=== PATIENT | female | born 1990 | race Asian ===

== ENCOUNTER 2016-12-27 14:28 | Emergency (ER) | payer MEDICAID, OTHER ==
[~2016-12-27] VITALS: Ht 149.9 cm; Wt 68.2 kg
[~2016-12-27 14:28] MED LIST: ARIP20TA8 PO; BUPR150T8 PO; DIVA250T25 PO; FLUO-191 PO
[2016-12-27] MEDS ORDERED: LORA0.5T2 PO (14:57)
[2016-12-27] MEDS ORDERED: [UNRECOGNIZED DRUG - CODE] PO (14:57)
[2016-12-27] MEDS ORDERED: GUAN1TAB22 PO (14:57)
[2016-12-27] MEDS ORDERED: ACET325T47 PO (14:57)
[2016-12-27] MEDS ORDERED: DIVA125T PO (14:57)
[2016-12-27 15:47] LABS: BASOPHILS % (AUTO) 0.6 % (0.0-2.0); EOSINOPHILS % (AUTO) 0.2 % (1.0-6.0); HEMATOCRIT 45.4 % (36-46); HEMOGLOBIN 15.1 g/dL (12.0-16.0); LYMPHOCYTES # (AUTO) 3.1 K/uL (1.0-4.8); LYMPHOCYTES % (AUTO) 35.9 % (22.0-44.0); MEAN CORPUSCULAR HEMOGLOBIN 31.9 pg (26.0-34.0); MEAN CORPUSCULAR HGB CONC 33.3 G/dL (31.0-37.0); MEAN CORPUSCULAR VOLUME 96 fL (80-100); MONOCYTES # (AUTO) 0.8 K/uL (0.1-1.0); MONOCYTES % (AUTO) 9.6 % (2.0-9.0); NEUTROPHILS # (AUTO) 4.6 K/uL (1.8-7.7); NEUTROPHILS % (AUTO) 53.7 % (40.0-70.0); PLATELET COUNT (AUTO) 240 K/uL (150-450); RED BLOOD CELL COUNT(AUTO) 4.74 MIL/uL (4.00-5.20); RED CELL DISTRIBUTION WIDTH 14.2 % (11.5-14.5); WHITE BLOOD COUNT (AUTO) 8.6 K/uL (4.5-11.0)
[2016-12-27 15:58] LABS: ANION GAP 12 mmol/L (8-16); CALCIUM, TOTAL 9.2 mg/dL (8.8-10.5); CARBON DIOXIDE 26 mmol/L (22-29); CHLORIDE 104 mmol/L (98-107); CREATININE 0.84 mg/dL (0.60-1.30); GLOMERULAR FILTR. RATE CALC > 60 mL/min (>60); POTASSIUM 3.5 mmol/L (3.5-5.1); SODIUM SERUM 142 mmol/L (136-145); UREA NITROGEN, BLOOD 13 mg/dL (7-18)
[2016-12-27 16:08] LABS: ALANINE AMINOTRANSFERASE 40 U/L (12-78); ALBUMIN 3.5 g/dL (3.4-5.0); ASPARTATE AMINOTRANSFERASE 38 U/L (15-37); BILIRUBIN,TOTAL 0.2 mg/dL (0.1-1.0); TOTAL PROTEIN, SERUM 8.4 g/dL (6.4-8.2)
[2016-12-27 16:27] LABS: VALPROIC ACID 88 mcg/mL (50-100)
[2016-12-27 16:29] VITALS: BP 127/82
[2016-12-27] MEDS ORDERED: ARIP15TA3 PO (17:12)
[2016-12-27] MEDS ORDERED: LORazepam 2 MG TABLET PO ONE (17:15)
[2016-12-27] MEDS ORDERED: HALOPERIDOL 5 MG TABLET PO ONE (17:15)
[2016-12-27] MEDS ORDERED: LORazepam 1 MG TABLET PO ONE (17:45)
== END 2016-12-27 18:16 | disposition home or self-care (01) ==
LOC: EMS 14:40
DX: F29 Unspecified psychosis not due to a substance or known physiological condition (principal)
CPT/HCPCS: 36415; 80053; 80164; 80307; 85025; 99284; G0480

== ENCOUNTER 2019-05-03 12:11 | Inpatient (IN) | payer OTHER ==
[~2019-05-03] VITALS: Ht 149.9 cm; Wt 84.7 kg
[~2019-05-03 12:11] MED LIST changes: +ACET325T47 PO; +ARIP15TA2 PO; -ARIP20TA8 PO; -BUPR150T8 PO; +DIVA-76 PO; -DIVA250T25 PO; +GUAN1TAB22 PO; +LORA0.5T2 PO; +[UNRECOGNIZED DRUG - CODE] PO
[2019-05-03] MEDS ORDERED: SODIUM CHLORIDE 0.9% 2,300 ML IV ONE (12:33)
[2019-05-03] MEDS ORDERED: 0.9% SODIUM CHLORIDE 10 ML SYRINGE IVP PRN ×2 (12:45→17:45)
[2019-05-03 13:08] LABS: APPEARANCE,URINE CLOUDY (CLEAR); BILIRUBIN,URINE NEGATIVE (NEGATIVE); GLUCOSE, URINE (UA) NEGATIVE (NEGATIVE); KETONES,URINE 15 mg/dL (NEGATIVE); LEUKOCYTE ESTERASE ,URINE LARGE (NEGATIVE); NITRATE,URINE NEGATIVE (NEGATIVE); OCCULT BLOOD,URINE MODERATE (NEGATIVE); PH,URINE 5.5 (5.0-8.0); PROTEIN,URINE POS 1+ (NEGATIVE)
[2019-05-03 13:13] LABS: WBC,URINE 51-100 /HPF (0-5)
[2019-05-03 13:14] LABS: BACTERIA,URINE Moderate /HPF (None Seen); RENAL EPITHELIAL CELLS,URINE Few /LPF (None Seen); SQUAMOUS EPITHELIAL CELL,UR Moderate /LPF (None Seen)
[2019-05-03 13:16] LABS: HEMATOCRIT 40.5 % (36-46); HEMOGLOBIN 13.5 g/dL (12.0-16.0); MEAN CORPUSCULAR HEMOGLOBIN 31.8 pg (26.0-34.0); MEAN CORPUSCULAR HGB CONC 33.3 G/dL (31.0-37.0); MEAN CORPUSCULAR VOLUME 96 fL (80-100); PLATELET COUNT (AUTO) 145 K/uL (150-450); RED BLOOD CELL COUNT(AUTO) 4.24 MIL/uL (4.00-5.20); RED CELL DISTRIBUTION WIDTH 13.2 % (11.5-14.5)
[2019-05-03] MEDS ORDERED: CefTRIAXone 1 GM/DEXTROSE 50 ML IV ONE (13:30)
[2019-05-03 13:39] LABS: PROTHROMBIN TIME 10.5 SEC (9.4-11.6)
[2019-05-03 13:41] LABS: ANION GAP 15 mmol/L (8-16); CALCIUM, TOTAL 9.2 mg/dL (8.8-10.5); CARBON DIOXIDE 20 mmol/L (22-29); CHLORIDE 101 mmol/L (98-107); CREATININE 0.99 mg/dL (0.60-1.30); GLOMERULAR FILTR. RATE CALC > 60 mL/min (>60); GLUCOSE,RANDOM 128 mg/dL (70-110); POTASSIUM 3.6 mmol/L (3.5-5.1); SODIUM SERUM 136 mmol/L (136-145); UREA NITROGEN, BLOOD 6 mg/dL (7-18)
[2019-05-03] MEDS ORDERED: SODIUM CHLORIDE 0.9% 100 ML ONE (13:45)
[2019-05-03] MEDS ORDERED: IOVERSOL 350 MG/ML 100 ML VIAL ONE (13:45)
[2019-05-03 13:46] LABS: ALANINE AMINOTRANSFERASE 39 U/L (12-78); ALBUMIN 3.1 g/dL (3.4-5.0); ALKALINE PHOSPHATASE 88 U/L (46-116); ASPARTATE AMINOTRANSFERASE 32 U/L (15-37); BILIRUBIN,TOTAL 0.5 mg/dL (0.1-1.0); TOTAL PROTEIN, SERUM 7.2 g/dL (6.4-8.2)
[2019-05-03 14:05] LABS: HCG,QUANTITATIVE < 1 mIU/mL (0-6); LACTIC ACID 2.8 mmol/L (0.4-2.0)
[2019-05-03 14:06] LABS: BAND NEUTROPHILS % (MANUAL) 17 % (0-5); LYMPHOCYTES % (MANUAL) 14 % (22-44); MONOCYTES % (MANUAL) 8 % (2-9); SEGMENTED NEUTROPHILS % 61 % (40-70)
[2019-05-03 14:58] LABS: INFLUENZA TYPE A NEGATIVE FOR TYPE A (NEGATIVE); INFLUENZA TYPE B NEGATIVE FOR TYPE B (NEGATIVE)
[2019-05-03] MEDS ORDERED: ACETAMINOPHEN 1000 MG/ISO-OSM 100 ML IV ONE (15:15)
[2019-05-03] MEDS ORDERED: LORazepam 2 MG/ML VIAL ONE (15:20)
[2019-05-03 15:30] LABS: ABG A-A DIFF O2 371.3 mmHg (10-20.0); ABG BASE EXCESS -10.8 mmol/L (-2.0-3.0); ABG CARBOXYHEMOGLOBIN 0.5 % (0.0-1.5); ABG HCO3 17.3 mmol/L (22.0-26.0); ABG METHEMOGLOBIN 0.3 % (0.0-1.5); ABG OXYGEN SATURATION 99.5 % (95.0-98.0); ABG OXYHEMOGLOBIN 98.7 % (94.0-100.0); ABG PCO2 29 mmHg (35-45); ABG PH 7.326 (7.350-7.450); ABG TOTAL HEMOGLOBIN 13.9 G/dL (12.0-18.0); SOURCE, BLOOD GAS ARTERIAL
[2019-05-03] MEDS ORDERED: LevETIRAcetam 1,000 MG in DEXTROSE 5%-WATER 100 ML IV ONE (15:30)
[2019-05-03] MEDS ORDERED: LORazepam 2 MG/ML VIAL IVP ONE ×2 (15:30→15:35)
[2019-05-03 15:31] LABS: O2 DEVICE,BLOOD GAS NON REBREATHER (ROOM AIR); SITE, BLOOD GAS RT RADIAL
[2019-05-03 15:44] LABS: GLUCOSE,POINT OF CARE 107 MG/DL (70-110)
[2019-05-03] MEDS ORDERED: SODIUM CHLORIDE 0.9% 1,000 ML IV ONE ×2 (15:45→19:15)
[2019-05-03] MEDS ORDERED: ACETAMINOPHEN 325 MG TABLET PO PRN ×2 (17:45→18:15)
[2019-05-03] MEDS ORDERED: ONDANSETRON HCL 4 MG/2 ML VIAL IVP PRN ×2 (17:45→18:15)
[2019-05-03] MEDS ORDERED: VANCOMYCIN HCL 1 GM/D5% WATER 200 ML IV ONE (17:45)
[2019-05-03] MEDS ORDERED: MAGNESIUM HYDROXIDE SUSPENSION 30 ML UDCUP PO PRN (18:15)
[2019-05-03] MEDS: SODIUM CHLORIDE 0.9% 1,000 ML IV SCH (18:26)
[2019-05-03] MEDS ORDERED: VANCOMYCIN HCL 750 MG in DEXTROSE 5%-WATER 250 ML IV ONE (19:15)
[2019-05-03] MEDS: DOCUSATE SODIUM 100 MG CAPSULE PO SCH (21:00)
[2019-05-03 21:19] VITALS: BP 117/97
[2019-05-03] MEDS ORDERED: LEVALBUTEROL HCL 1.25 MG/0.5 ML NEB SOLUTION NEB PRN (21:45)
[2019-05-04] VITALS (10 sets, daily range): BP systolic 12–133; BP diastolic 56–76
[2019-05-04] MEDS: MethylPREDNISolone SOD SUCC 40 MG/ML VIAL IVP SCH ×4 (00:36→23:04)
[2019-05-04] MEDS: SODIUM CHLORIDE 0.9% 1,000 ML IV SCH ×3 (02:49→20:19)
[2019-05-04 05:17] LABS: HEMATOCRIT 36.4 % (36-46); HEMOGLOBIN 12.1 g/dL (12.0-16.0); MEAN CORPUSCULAR HEMOGLOBIN 32.1 pg (26.0-34.0); MEAN CORPUSCULAR HGB CONC 33.3 G/dL (31.0-37.0); MEAN CORPUSCULAR VOLUME 96 fL (80-100); PLATELET COUNT (AUTO) 107 K/uL (150-450); RED BLOOD CELL COUNT(AUTO) 3.79 MIL/uL (4.00-5.20); RED CELL DISTRIBUTION WIDTH 13.6 % (11.5-14.5)
[2019-05-04 05:36] LABS: ANION GAP 12 mmol/L (8-16); CARBON DIOXIDE 18 mmol/L (22-29); CHLORIDE 111 mmol/L (98-107); GLOMERULAR FILTR. RATE CALC > 60 mL/min (>60); GLUCOSE,RANDOM 177 mg/dL (70-110); POTASSIUM 3.7 mmol/L (3.5-5.1); SODIUM SERUM 141 mmol/L (136-145); UREA NITROGEN, BLOOD 5 mg/dL (7-18)
[2019-05-04 06:29] LABS: BAND NEUTROPHILS % (MANUAL) 15 % (0-5); LYMPHOCYTES % (MANUAL) 6 % (22-44); MONOCYTES % (MANUAL) 3 % (2-9); SEGMENTED NEUTROPHILS % 76 % (40-70)
[2019-05-04] MEDS: FAMOTIDINE 20 MG TABLET PO SCH (08:48)
[2019-05-04] MEDS: VANCOMYCIN HCL 1.25 GM in DEXTROSE 5%-WATER 250 ML IV SCH ×2 (08:49→20:18)
[2019-05-04] MEDS: DOCUSATE SODIUM 100 MG CAPSULE PO SCH ×2 (08:50→20:19)
[2019-05-04] MEDS: CefTRIAXone 1 GM/DEXTROSE 50 ML IV SCH (14:26)
[2019-05-05 05:28] VITALS: BP 117/76
[2019-05-05] MEDS: SODIUM CHLORIDE 0.9% 1,000 ML IV SCH ×2 (05:44→21:13)
[2019-05-05 06:47] LABS: ANION GAP 9 mmol/L (8-16); CALCIUM, TOTAL 8.7 mg/dL (8.8-10.5); CARBON DIOXIDE 20 mmol/L (22-29); CHLORIDE 112 mmol/L (98-107); CREATININE 0.71 mg/dL (0.60-1.30); GLOMERULAR FILTR. RATE CALC > 60 mL/min (>60); GLUCOSE,RANDOM 143 mg/dL (70-110); POTASSIUM 3.7 mmol/L (3.5-5.1); SODIUM SERUM 141 mmol/L (136-145); UREA NITROGEN, BLOOD 8 mg/dL (7-18); VANCOMYCIN,RANDOM 8.5 mcg/mL (25.0-50.0)
[2019-05-05] MEDS ORDERED: VANCOMYCIN HCL 1.5 GM in DEXTROSE 5%-WATER 250 ML IV SCH (07:00)
[2019-05-05 08:02] VITALS: BP 123/72
[2019-05-05] MEDS: MethylPREDNISolone SOD SUCC 40 MG/ML VIAL IVP SCH ×3 (08:15→23:05)
[2019-05-05] MEDS: FAMOTIDINE 20 MG TABLET PO SCH (08:15)
[2019-05-05] MEDS: DOCUSATE SODIUM 100 MG CAPSULE PO SCH ×2 (08:15→21:07)
[2019-05-05 11:20] VITALS: BP 132/78
[2019-05-05] MEDS: CefTRIAXone 1 GM/DEXTROSE 50 ML IV SCH (15:06)
[2019-05-05 15:31] VITALS: BP 119/71
[2019-05-05 19:58] VITALS: BP 128/77
[2019-05-05 23:57] VITALS: BP 123/69
[2019-05-06 04:44] VITALS: BP 128/81
[2019-05-06 06:11] LABS: BASOPHILS % (AUTO) 0.1 % (0.0-2.0); EOSINOPHILS % (AUTO) 0 % (1.0-6.0); HEMATOCRIT 36.4 % (36-46); HEMOGLOBIN 12.2 g/dL (12.0-16.0); LYMPHOCYTES # (AUTO) 1.5 K/uL (1.0-4.8); LYMPHOCYTES % (AUTO) 14.5 % (22.0-44.0); MEAN CORPUSCULAR HGB CONC 33.4 G/dL (31.0-37.0); MEAN CORPUSCULAR VOLUME 96 fL (80-100); MONOCYTES # (AUTO) 0.5 K/uL (0.1-1.0); MONOCYTES % (AUTO) 4.8 % (2.0-9.0); NEUTROPHILS # (AUTO) 8.1 K/uL (1.8-7.7); NEUTROPHILS % (AUTO) 80.6 % (40.0-70.0); PLATELET COUNT (AUTO) 164 K/uL (150-450); RED CELL DISTRIBUTION WIDTH 13.6 % (11.5-14.5)
[2019-05-06] MEDS: SODIUM CHLORIDE 0.9% 1,000 ML IV SCH ×2 (06:17→10:15)
[2019-05-06 06:23] LABS: ANION GAP 10 mmol/L (8-16); CALCIUM, TOTAL 8.6 mg/dL (8.8-10.5); CARBON DIOXIDE 22 mmol/L (22-29); CHLORIDE 109 mmol/L (98-107); CREATININE 0.81 mg/dL (0.60-1.30); GLOMERULAR FILTR. RATE CALC > 60 mL/min (>60); GLUCOSE,RANDOM 152 mg/dL (70-110); POTASSIUM 3.3 mmol/L (3.5-5.1); SODIUM SERUM 141 mmol/L (136-145); UREA NITROGEN, BLOOD 9 mg/dL (7-18)
[2019-05-06 07:39] VITALS: BP 131/71
[2019-05-06] MEDS: DOCUSATE SODIUM 100 MG CAPSULE PO SCH ×2 (08:27→08:28)
[2019-05-06] MEDS: FAMOTIDINE 20 MG TABLET PO SCH (08:27)
[2019-05-06] MEDS: MethylPREDNISolone SOD SUCC 40 MG/ML VIAL IVP SCH ×2 (08:27→15:42)
[2019-05-06 11:11] VITALS: BP 135/73
[2019-05-06] MEDS ORDERED: POTASSIUM CHLORIDE 20 MEQ ER TABLET PO PRN (12:00)
[2019-05-06] MEDS ORDERED: POTASSIUM CHL 10 MEQ/WATER 50 ML IV PRN (12:00)
[2019-05-06] MEDS ORDERED: CIPR-278 PO (12:41)
[2019-05-06] MEDS: CefTRIAXone 1 GM/DEXTROSE 50 ML IV SCH (13:11)
== END 2019-05-06 15:40 | disposition home or self-care (01) | DRG 720 ==
LOC: EMS 12:14 → ICU 18:09 → 5S 05-04 15:50 → 6N 05-05 16:50 → 4E 05-06 13:20
PROVIDERS: ADMIT Internal Medicine; ATTEND Internal Medicine
DX: A41.51 Sepsis due to Escherichia coli [E. coli] (principal); G92 Toxic encephalopathy; N12 Tubulo-interstitial nephritis, not specified as acute or chronic; G80.9 Cerebral palsy, unspecified; H91.90 Unspecified hearing loss, unspecified ear; Z90.49 Acquired absence of other specified parts of digestive tract; Z88.8 Allergy status to other drugs, medicaments and biological substances; Z91.011 Allergy to milk products; Z79.899 Other long term (current) drug therapy
CPT/HCPCS: 36600; 70450; 74178; 82805; 83605; 87040; 87081; 87086; 87804; 93005; 95816; 96365; 96375; 99291; G0378; J0131; J0696; J0712; J2060; J2920; J3370; J7030; J7050; J7060